=== PATIENT | female | born 1950 | race African-American/Black ===

== ENCOUNTER 2017-11-15 13:42 | Outpatient (CLI) | payer MEDICARE, MEDICAID ==
--- NOTE | 2017-11-15 14:26 | RAD ---
TWO VIEWS CHEST: Date: 11-15-17 Comparison: 03-18-16 FINDINGS: Two views of the chest demonstrates cardiomegaly. Extensive pulmonary vascular congestion is seen. Di ffuse airspace opacity is seen in both lungs, compatible with pulmonary edema. IMPRESSION: Extensive congestive heart failure and cardiomegaly. POS: [facility]
== END 2017-11-15 13:43 | disposition home or self-care (01) ==
LOC: RAD 13:42
PROVIDERS: ATTEND Internal Medicine Critical Care Medicine
DX: I50.9 Heart failure, unspecified (principal); I51.7 Cardiomegaly; R06.00 Dyspnea, unspecified
CPT/HCPCS: 71046

== ENCOUNTER 2019-11-07 12:28 | Emergency (ER) | payer MEDICARE, MEDICAID ==
[~2019-11-07 12:28] MED LIST: Iopamidol 370 76% 50 ML VIAL FS ONE; Iopamidol-370 76% 500 ML 1 ML ONE
[2019-11-07 14:05] LABS: #Eosinphils 0.1 thou/uL (0.0-0.7); #Monocytes 0.7 thou/uL (0.11-0.59); #Neutrophils 13.8 thou/uL (1.40-6.50); %Eosinophils 0.6 % (0.0-10.0); %Lymphocytes 6.7 % (21.0-51.0); %Monocytes 4.7 % (0.0-10.0); %Neutrophils 88.1 % (42.0-75.0); Hemoglobin 8.4 g/dL (12.0-16.0); Mean Corpuscular HGB CONC 29.3 g/dL (32.0-36.0); Mean Corpuscular Hemoglobin 25.2 pg (27.0-31.0); Mean Corpuscular Volume 86.1 fL (78.0-98.0); Mean Platelet Volume 7.2 fL (7.4-10.4); Platelet Count 295 thou/uL (130-400); RBC Distribution Width 18.3 % (11.5-14.5); Red Blood Cell (RBC) Count 3.33 mill/uL (4.20-5.40); White Blood Cell (WBC) Count 15.7 thou/uL (4.8-10.8)
[2019-11-07 14:18] LABS: ALT (SGPT) Less than 7 U/L (8-55); AST (SGOT) 10 U/L (5-34); Albumin 3.1 g/dL (3.4-4.8); Alkaline Phosphatase 132 U/L (40-110); Anion Gap 16 mmol/L (10-20); BUN (Urea Nitrogen) 39 mg/dL (9.8-20.1); Bilirubin, Total 0.5 mg/dL (0.2-1.2); Calc. Creatinine Clearance 0 mL/min (70-130); Calcium 10.5 mg/dL (7.8-10.44); Carbon Dioxide 31 mmol/L (23-31); Chloride 97 mmol/L (98-107); Estimated GFR-MDRD 8; Globulin 4.3 g/dL (2.4-3.5); Glucose 88 mg/dL (80-115); Potassium 3.6 mmol/L (3.5-5.1); Protein, Total 7.4 g/dL (6.0-8.3); Sodium 140 mmol/L (136-145)
[2019-11-07 14:31] LABS: Anisocytosis SLIGHT = 6-15 cells (100X) (0-5/hpf); Hypochromia SLIGHT = 6-15 cells (100X) (0-5/hpf); MDiff Complete? YES; Platelet Morphology Comment Appears Adequate; Polychromasia MODERATE = 3-4 cells (100X) (0-2/hpf); Target Cells SLIGHT = 2-5 cells (100X) (0-1/hpf)
--- NOTE | 2019-11-07 15:17 | CT ---
CT pelvis with IV and rectal contrast HISTORY: Pelvic pain. Bleeding. COMPARISON: 03/21/2015. FINDINGS: Rectal contrast was administered. No extra enteric contrast is evident. No free air or free fluid within the pelvis. Abdomen was not imaged. Prominent degenerative changes of the lower lumbar spine. Dystrophic calcification throughout the lob ular uterus. Prominent calcification of the arterial structures. IMPRESSION : No acute abnormalities of the rectum evident. Fibroid involvement of the uterus. Prominent atherosclerosis.
== END 2019-11-07 15:00 | disposition left against medical advice (07) ==
LOC: ERS 12:28
DX: K64.4 Residual hemorrhoidal skin tags (principal); K64.8 Other hemorrhoids; I10 Essential (primary) hypertension; G47.30 Sleep apnea, unspecified; J45.909 Unspecified asthma, uncomplicated; Z79.899 Other long term (current) drug therapy
CPT/HCPCS: 72193; 80053; 85025; Q9967